=== PATIENT | female | born 1940 | race Caucasian/White ===

== ENCOUNTER 2018-09-12 00:42 | Emergency (ER) | payer MEDICARE, OTHER, SELFPAY ==
--- NOTE | 2018-09-12 00:49 | DI.RAD.S_ITS ---
PROCEDURE: XR ELBOW LT MIN 3V INDICATIONS: Ground level fall TECHNIQUE: 3 views of the elbow were acquired. COMPARISON: None. FINDINGS: Bones: No fractures or dislocations. No suspicious bony lesions. Soft tissues: No elbow joint effusion. No suspicious soft tissue calcifications. IMPRESSION: No fracture. If the patient's symptoms do not improve recommend followup radiographs in 10 days to assess for healing sclerosis/occult injury. Dictated by: Alex Estrada M.D. on 09/12/2018 at 7:44 Approved by: Alex Estrada M.D. on 09/12/2018 at 7:44
--- NOTE | 2018-09-12 00:51 | DI.RAD.S_ITS ---
PROCEDURE: XR SHOULDER LT MIN 2V INDICATIONS: Ground level fall TECHNIQUE: 2 views of the shoulder were acquired. COMPARISON: None. FINDINGS: Bones: No fractures or dislocations. No suspicious bony lesions. Visualized ribs appear intact. Status post left shoulder arthroplasty. Acromioclavicular joint degeneration. Soft tissues: No suspicious soft tissue calcifications. IMPRESSION: No fracture Dictated by: Alex Estrada M.D. on 09/12/2018 at 7:50 Approved by: Alex Estrada M.D. on 09/12/2018 at 7:53
[2018-09-12 00:56] VITALS: BP 178/73; PULSE 90; RESP 16; TEMP 36.8; O2SAT 98; BMI 30.9
--- NOTE | 2018-09-12 01:00 | ED_ITS ---
HPI - Extremity Injury (Upper) <Magali Urena DO - Last Filed: 09/12/18 18:54> General Chief Complaint: Extremity Injury, Upper Stated Complaint: Fall / L Humerous Fx Time Seen by Provider: 09/12/18 00:52 Source: patient Mode of arrival: ambulatory Limitations: no limitations History of Present Illness HPI narrative: patient is a 77-year-old female who presents with left arm injury. She says she tripped over an extension cord under rub. She landed on her left elbow she has pain in that area. She does have some bruising in the superficial laceration. No numbness or tingling. She is not on any anti- platelet or anticoagulation medication. No other injuries denies any head injury or hip injury. She is ambulatory but does require walking poles due to ft problems. Related Data Allergies Allergy/AdvReac Type Severity Reaction Status Date / Time soy Allergy Intermediate HIVES Verified 09/12/18 01:33 codeine AdvReac Mild VOMITING Verified 09/12/18 01:33 ketorolac AdvReac Mild VOMITING Verified 09/12/18 01:33 morphine AdvReac Mild N/V Verified 09/12/18 01:33 oxycodone AdvReac Mild VOMITING Verified 09/12/18 01:33 pentobarbital AdvReac Mild VOMITING Verified 09/12/18 01:33 Review of Systems <Magali Urena DO - Last Filed: 09/12/18 18:54> Review of Systems ROS Unobtainable: All systems reviewed & are unremarkable except as noted in HPI and below Constitutional Denies chills, Denies fever(s), Denies lethargy and Denies weakness Cardiovascular Denies chest pain, Denies irregular heart rhythm, Denies lightheadedness, Denies palpitations and Denies orthopnea Musculoskeletal Reports as per HPI Integumentary/Breasts Reports as per HPI and Denies bleeding lesions Neurologic Denies weakness Endocrine Denies palpitations PFS <Magali Urena DO - Last Filed: 09/12/18 18:54> Medical History GERD (gastroesophageal reflux disease) (Acute) Surgical History History of left shoulder replacement (Acute) Status post surgery (01/12/09) Social History Smoking Status: Former smoker Social History Smoking Status: Former smoker Exam <Magali Urena DO - Last Filed: 09/12/18 18:54> Initial Vital Signs Initial Vital Signs: Vital Signs Temperature 98.2 F 09/12/18 00:56 Pulse Rate 90 09/12/18 00:56 Respiratory Rate 16 09/12/18 00:56 Blood Pressure 178/73 H 09/12/18 00:56 Pulse Oximetry 98 09/12/18 00:56 GENERAL: alert pleasant elderly female in no acute distress HEENT: Head atraumatic, no contusions or abrasionsEOMI, pupils reactive, face symmetric, neck is supple CARDIOVASCULAR: Regular rate and rhythm without murmurs, rubs or gallops. RESPIRATORY: Breath sounds equal bilaterally, no wheezes rales or rhonchi. ABDOMEN: Soft, nontender. Normoactive bowel sounds all 4 quadrants. No guarding or rebound. EXTREMITIES: Normal range of motion, no clubbing or edema. Neurovascularly intact. hips and pelvis nontender - left upper extremity: No clavicle or shoulder tenderness or deformity. She does have distal humerus contusion with a 3 in 0.5 cm superficial laceration is. No tender over olecranon on able to flex and extend though it is slightly painful due to swelling. Neurovascularly intact. No wrist deformities. NEUROLOGICAL: Alert and oriented x3 moves all extremities SKIN: Warm, dry, no laceration, no petechiae, no rashes or lesions. <Manoj Rodarte DO - Last Filed: 09/12/18 18:30> Initial Vital Signs Initial Vital Signs: Vital Signs Temperature 98.2 F 09/12/18 00:56 Pulse Rate 90 09/12/18 00:56 Respiratory Rate 16 09/12/18 00:56 Blood Pressure 178/73 H 09/12/18 00:56 Pulse Oximetry 98 09/12/18 00:56 Course <Magali Urena DO - Last Filed: 09/12/18 18:54> Orders Ordered: Discontinued Medications Acetaminophen (Tylenol) 975 mg PO NOW ONE Stop: 09/12/18 01:30 Last Admin: 09/12/18 01:34 Dose: 975 mg Diphtheria/Tetanus/Acell Pertussis (Adacel) 0.5 ml IM .ONCE ONE Stop: 09/12/18 01:30 Last Admin: 09/12/18 01:34 Dose: 0.5 ml Vital Signs - 8 hr 09/12/18 01:51 09/12/18 05:15 Pulse Rate 71 79 Respiratory Rate 16 16 Blood Pressure [Right Arm] 147/54 H 171/60 H Pulse Oximetry 98 96 <Manoj Rodarte DO - Last Filed: 09/12/18 18:30> Course Narrative: PT AOx3, has family/friend picking her up at [facility]. [facility] will transport to [facility]. Orders Ordered: Discontinued Medications Acetaminophen (Tylenol) 975 mg PO NOW ONE Stop: 09/12/18 01:30 Last Admin: 09/12/18 01:34 Dose: 975 mg Diphtheria/Tetanus/Acell Pertussis (Adacel) 0.5 ml IM .ONCE ONE Stop: 09/12/18 01:30 Last Admin: 09/12/18 01:34 Dose: 0.5 ml Vital Signs - 8 hr 09/12/18 01:51 09/12/18 05:15 Pulse Rate 71 79 Respiratory Rate 16 16 Blood Pressure [Right Arm] 147/54 H 171/60 H Pulse Oximetry 98 96 MDM - Extremity Injury (Upper) <Magali Urena, DO - Last Filed: 09/12/18 18:54> Imaging Data right shoulder XR: Attestation: I personally reviewed and interpreted this imaging study as follows: My impression: Surgical repair noted no fracture right elbow x-ray: Attestation: I personally reviewed and interpreted this imaging study as follows: My impression: no fracture no posterior fat pad MDM Narrative Medical decision making narrative: patient initially waited in the ED until taxi cab her running again. Unfortunately [employer] is no longer running due to the weather conditions. We have called patient's emergency contact [place]. She also is noted in high and cannot get out. She has no on else to come and get her. As the patient is elderly cannot take the bus and walk long distances in the snow. Also not sure taxi cab on [facility] is running. patient is requiring in eating transport back to the [facility] at this time she has a contusion on her left arm and does not meet any sort of admission criteria. Fire department kindly took patient to the [facility] Discharge Plan Departure Patient Disposition: Home Clinical Impression: Contusion of arm, left Qualifiers: Encounter type: initial encounter Qualified Code(s): S40.022A - Contusion of left upper arm, initial encounter Discharge Date/Time: 09/12/18 09:20 Interventions: ED Discharge Assessment Last Done: 09/12/18 09:20 Instructions: DI for Contusion Activity Restrictions/Additional Instructions: *You have been diagnosed with left arm contusion *What to do: keep arm elevated above heart if possible, ice 20 min at a time, if still having pain in 7 10 days may require repeat imaging, With her primary care provider, walk-in clinic or ER *Continue to take medications as directed - Tylenol 650 mg every 4-6 hours if needed for pain *Follow up with your primary care provider in 2-3 days *Return to ER if you should have increasing pain, numbness, tingling, redness, pus any new, worsening or concerning symptoms Referrals: Edil Ballesteros MD [Primary Care Provider] -
[2018-09-12] MEDS: ACETAMINOPHEN 325 MG TABLET 975 MG PO (01:34)
[2018-09-12] MEDS: TET,DIPH,PERTUSS(ACELL),VAC/PF 0.5 ML SYRINGE IM (01:34)
[2018-09-12 01:51] VITALS: BP 147/54; PULSE 71; RESP 16; O2SAT 98
--- NOTE | 2018-09-12 05:00 | PC.NURSE ---
patient came over from [facility] via POV. patient lives alone. We attempted to call [facility] and patients friend to help get her home. [employer] is not running today and patients friend states that she cannot leave her house due to the snow. public transit bus is not a safe option.
[2018-09-12 05:15] VITALS: BP 171/60; PULSE 79; RESP 16; O2SAT 96
== END 2018-09-12 09:20 | disposition home or self-care (01) ==
PROVIDERS: Emergency Provider Emergency Medicine; PCP Family Medicine
DX: S40.022A Contusion of left upper arm, initial encounter (principal); W01.0XXA Fall on same level from slipping, tripping and stumbling without subsequent striking against object, initial encounter
CPT/HCPCS: 73030; 73080; 90471; 99283; 90715

== ENCOUNTER → 2018-12-27 11:39 | Outpatient (CLI) | payer MEDICARE, OTHER, SELFPAY ==
--- NOTE | 2018-12-27 | DI.MRI.S_ITS ---
PROCEDURE: MR LUMBAR SPINE WO CON INDICATIONS: Spinal stenosis, lumbar region with neurogenic cla TECHNIQUE: Noncontrast sagittal T1 spin echo and T2 fast echo, sagittal STIR, axial T1 and T2 fast spin echo through the lumbar spine. In cases with scoliosis, additional coronal T2 fast spin echo may be performed. COMPARISON: [facility], MR, L-SPINE WITHOUT CONTRAST, 12/17/2013, 9:19. [facility], CR, L-SPINE MINIMUM 4 VIEWS, 03/28/2007, 12:11. [facility], MR, L-SPINE WITHOUT CONTRAST, 01/24/2017, 15:00. FINDINGS: Image quality: Excellent. Alignment and Curvature: S-shaped scoliotic curvature is seen. Mild retrolisthesis is seen at L2-L3. There is minimal anterolisthesis at L3-L4. Mild anterolisthesis is seen of L4-L5. Minimal retrolisthesis is seen at L5-S1. Bone Marrow: Marrow is of normal overall signal. No acute vertebral body compression fractures. Spinal Cord: Conus medullaris terminates at the L1 level. Visualized cord demonstrates normal signal and size. Paraspinous Soft Tissues: No paravertebral masses. T12-L1: Moderate loss of disc height is seen. Loss of disc signal is seen. Bridging endplate osteophytes are seen anteriorly. Mild to moderate disc bulge is seen. No significant neural foraminal or central canal narrowing can be seen. L1-L2: Moderate to severe loss of disc height and disc signal can be seen on the left side. Moderate generalized disc bulge is seen. Mild facet joint hypertrophy is seen. There is moderate left-sided and mild right-sided neural foraminal narrowing seen. Moderate central canal narrowing is seen. When comparison is made with the prior examination, these findings are similar. L2-L3: Moderate loss of disc height is seen. Loss of disc signal is seen. Moderate disc bulge is seen, which is eccentric to the left. There is moderate bilateral neural foraminal narrowing seen. At least moderate central canal narrowing is seen. When comparison is made with the prior examination, these findings are similar. L3-L4: Moderate loss of disc height is seen. Loss of disc signal is seen. Moderate disc bulge is seen, which is eccentric to the left. Prominent facet hypertrophy is seen. There is moderate left-sided and at least moderate right-sided neural foraminal narrowing seen. Mild central canal narrowing is seen. L4-L5: There is moderate to severe loss of disc height seen on the right side. Moderate disc bulge is seen, which is eccentric to the right. Moderate to prominent facet hypertrophy is seen. Moderate to severe bilateral neural foraminal narrowing is seen, right worse than left. There is a degree of compression seen upon the exiting nerve roots. Mild to moderate central canal narrowing is seen. When comparison is made with the prior examination, these findings are similar. L5-S1: Mild loss of disc height is seen. Loss of disc signal is seen. Mild to moderate disc bulge is seen. Prominent facet hypertrophy is seen. Moderate bilateral neural foraminal narrowing is seen. [id number]-[id number] central canal narrowing is seen. When comparison is made with the prior examination, these findings are similar. IMPRESSION: S-shaped scoliosis and multiple levels of lumbar spine degenerative change are seen. When compared to the images from 2017, the degenerative changes are similar. Dictated by: Carlos Abreu M.D. on 12/27/2018 at 13:25 Approved by: Carlos Abreu M.D. on 12/27/2018 at 13:31
== END ==
PROVIDERS: PCP Family Medicine; Visit Provider Physical Medicine & Rehabilitation Pain Medicine
DX: M48.062 Spinal stenosis, lumbar region with neurogenic claudication (principal); M47.816 Spondylosis without myelopathy or radiculopathy, lumbar region; M47.817 Spondylosis without myelopathy or radiculopathy, lumbosacral region; M41.9 Scoliosis, unspecified
CPT/HCPCS: 72148

== ENCOUNTER → 2020-04-16 11:15 | Outpatient (CLI) | payer MEDICARE, OTHER, SELFPAY ==
--- NOTE | 2020-04-16 12:19 | DIET.PN ---
Nutrition Initial Assessment:? ASSESS:???Ms. Gonzalez is a 79 yof referred for pre-diabetes. She reports strong family hx of diabetes (mother, siblings). Recently lost 10 lbs with nutrisystem but gained it back once she discontinued. Has tried vegetarian. Interested in trying Keto. Severe neuropathy in both feet making activity challenging. She lives on [place] alone as her and sister recently passed. ? LABS: Per pt report:? A1c: 5.8 ? MEDS:?? n/a ? DIET: Per 24-hour recall:? B: oatmeal w/ berries; coffee w/ coconut cream L: Nutrisystem meals; cheese and crackers w/ ? avocado Sn: raw veggies w/ ranch D: Salad, sweet potato, small protein; Caesar wrap Sn: small bowl of nuts ? Weight: 180 lb Ht:? 62 in BMI: 32.9 ? Exercise:? none at this time. NUTRITION DX 1. Altered Nutrition related labs related to impaired glucose metabolism, lack of previous exposure to accurate nutrition information as evidenced by pt report, dx of pre-diabetes, previous diet high in refined carbohydrates, lack of physical activity.? INTERVENTION(s): 1. Discussed pathophysiology of diabetes/hyperglycemia and impact of nutrition/diet on blood sugar control.? 2. Discussed the effect of carbohydrates/protein/fat on blood sugar control.? Stressed importance of consistent carbohydrate intake at each meal and provided instructions for recommended servings/portions of carbohydrates/protein per meal. Provided pt with educational material. 3. Reviewed carbohydrate counting and measuring carbohydrate content via serving sizes and reading nutrition labels.? Provided handouts.?? 4. Discussed the difference between simple versus complex carbohydrates and the effect of fiber on blood sugar control.? Discussed various methods to increase fiber content in diet. 5. Stressed importance of meal timing and not going >4-5 hours between meals. Encouraged adding protein to snacks to support glucose control and prevent hunger. Discussed various snack options. 6. Discussed importance of food preparation to encourage healthy eating, portion control, and prevent hunger/over snacking. 7. Discussed healthy weight loss goals of 1-2lbs per week through diet and exercise.? Pt agreeable to keeping a food record when bg is above 140. MONITOR/EVALUATE: Pt will call for f/u when she has her next provider appt.
== END ==
PROVIDERS: PCP Family Medicine; Referring Provider Family Medicine; Visit Provider Family Medicine
DX: R73.03 Prediabetes (principal); G62.9 Polyneuropathy, unspecified; E66.9 Obesity, unspecified; Z68.32 Body mass index [BMI] 32.0-32.9, adult; Z71.3 Dietary counseling and surveillance
CPT/HCPCS: 97802

== ENCOUNTER → 2021-01-19 10:00 | Outpatient (CLI) | payer MEDICARE, OTHER, SELFPAY ==
[2021-01-19 19:50] LABS: Add Manual Diff / Slide Review NO; Basophils Absolute Auto 100 /uL (0-100); Basophils Percent Auto 1.1 % (0-2); Eosinophils Absolute Auto 200 /uL (0-450); Eosinophils Percent Auto 2.2 % (2-4); Hematocrit 38.5 % (36-46); Hemoglobin 12.8 g/dL (12.0-16.0); Lymphocytes Absolute Auto 1500 /uL (1100-4500); Lymphocytes Percent Auto 15.7 % (25-40); Mean Corpuscular HGB Conc 33.3 % (30-36); Mean Corpuscular Hemoglobin 30.9 PG (26-34); Mean Corpuscular Volume 92.9 fL (80-100); Monocytes Absolute Auto 700 /uL (0-900); Monocytes Percent Auto 7.2 % (3-14); Neutrophils Absolute Auto 6900 /uL (1500-7000); Neutrophils Percent Auto 73.8 % (50-75); Platelet Count 180 X10^3/uL (150-400); Red Blood Cell Count 4.15 X10^6/uL (4.0-5.2); Red Cell Distribution Width 14.9 % (11.6-14.8); White Blood Cell Count 9.4 X10^3/uL (4.5-11.0)
[2021-01-19 20:03] LABS: Alanine Aminotransferase 21 IU/L (<35); Albumin 4.1 g/dL (3.5-5.0); Albumin Globulin Ratio 1.4 (1.0-2.8); Alkaline Phosphatase 88 U/L (38-126); Aspartate Aminotransferase 34 IU/L (14-36); BUN Creatinine Ratio 25.3 (6-22); Bilirubin Total 0.5 mg/dL (0.2-1.3); Blood Urea Nitrogen 23 mg/dL (7-17); Calcium 10.1 mg/dL (8.4-10.2); Carbon Dioxide 28 mmol/L (22-32); Chloride 99 mmol/L (98-107); Cholesterol 301 mg/dL (140-199); Estimated Glomerular Filt Rate 59.8 mL/min (>60); Globulin 2.9 g/dL (1.7-4.1); Glucose 105 mg/dL (80-110); HDL Cholesterol 101 mg/dL (40-60); HEMOLYSIS 16 (0-50); LDL Cholesterol Calculated 176 mg/dL (<100); Potassium 4.4 mmol/L (3.4-5.1); Sodium 137 mmol/L (137-145); Triglycerides 118 mg/dL (35-150)
[2021-01-19 20:05] LABS: Hemoglobin A1C% w Est Avg Glu 5.6 % (4.0-6.0)
[2021-01-19 20:28] LABS: Thyroid Stimulating Hormone 86.3 uIU/mL (0.47-4.68)
== END ==
PROVIDERS: PCP Physician Assistant; Visit Provider Physician Assistant
DX: E78.00 Pure hypercholesterolemia, unspecified (principal); R73.9 Hyperglycemia, unspecified; K21.9 Gastro-esophageal reflux disease without esophagitis; E03.9 Hypothyroidism, unspecified; G62.9 Polyneuropathy, unspecified
CPT/HCPCS: 80053; 80061; 83036; 84443; 85025

== ENCOUNTER → 2021-05-13 13:24 | Outpatient (CLI) | payer MEDICARE, OTHER, SELFPAY ==
[2021-05-13 19:06] LABS: Alanine Aminotransferase 17 IU/L (<35); Albumin Globulin Ratio 1.5 (1.0-2.8); Alkaline Phosphatase 82 U/L (38-126); Aspartate Aminotransferase 32 IU/L (14-36); BUN Creatinine Ratio 23.8 (6-22); Bilirubin Total 0.4 mg/dL (0.2-1.3); Blood Urea Nitrogen 15 mg/dL (7-17); Calcium 9.5 mg/dL (8.4-10.2); Carbon Dioxide 29 mmol/L (22-32); Chloride 103 mmol/L (98-107); Estimated Glomerular Filt Rate > 60.0 mL/min (>60); Globulin 2.7 g/dL (1.7-4.1); Glucose 142 mg/dL (80-110); HEMOLYSIS 33 (0-50); Potassium 4.2 mmol/L (3.4-5.1); Sodium 140 mmol/L (137-145); Total Protein 6.7 g/dL (6.3-8.2)
[2021-05-13 19:33] LABS: TSH w/ Reflex to FT4 1.38 uIU/mL (0.47-4.68)
== END ==
PROVIDERS: PCP Physician Assistant; Referring Provider Physician Assistant; Visit Provider Physician Assistant
DX: E78.00 Pure hypercholesterolemia, unspecified (principal); E03.9 Hypothyroidism, unspecified; R25.1 Tremor, unspecified
CPT/HCPCS: 80053; 84443

== ENCOUNTER → 2021-05-18 11:50 | Outpatient (CLI) | payer MEDICARE, OTHER, SELFPAY ==
[2021-05-18 19:25] LABS: Hemoglobin A1C% w Est Avg Glu 5.4 % (4.0-6.0)
== END ==
PROVIDERS: PCP Physician Assistant; Referring Provider Physician Assistant; Visit Provider Physician Assistant
DX: R73.9 Hyperglycemia, unspecified (principal)
CPT/HCPCS: 83036

== ENCOUNTER → 2021-08-06 11:01 | Outpatient (CLI) | payer MEDICARE, SELFPAY ==
[2021-08-06 19:25] LABS: Alanine Aminotransferase 16 IU/L (<35); Albumin Globulin Ratio 1.4 (1.0-2.8); Alkaline Phosphatase 69 U/L (38-126); Aspartate Aminotransferase 26 IU/L (14-36); BUN Creatinine Ratio 19.7 (6-22); Bilirubin Total 0.5 mg/dL (0.2-1.3); Blood Urea Nitrogen 15 mg/dL (7-17); Calcium 9.6 mg/dL (8.4-10.2); Carbon Dioxide 32 mmol/L (22-32); Chloride 102 mmol/L (98-107); Estimated Glomerular Filt Rate > 60.0 mL/min (>60); Globulin 2.8 g/dL (1.7-4.1); Glucose 108 mg/dL (80-110); HEMOLYSIS < 15 (0-50); Potassium 3.8 mmol/L (3.4-5.1); Sodium 138 mmol/L (137-145); Total Protein 6.8 g/dL (6.3-8.2)
[2021-08-06 19:30] LABS: Hemoglobin A1C% w Est Avg Glu 5.6 % (4.0-6.0)
[2021-08-06 19:43] LABS: Free T4, Direct Thyroxine 0.91 ng/dL (0.78-2.19)
[2021-08-06 19:57] LABS: Thyroid Stimulating Hormone 3.41 uIU/mL (0.47-4.68)
[2021-08-06 20:15] LABS: Vitamin B12 1000 pg/mL (239-931)
== END ==
PROVIDERS: PCP Physician Assistant; Visit Provider Family Medicine
DX: E78.00 Pure hypercholesterolemia, unspecified (principal); R73.9 Hyperglycemia, unspecified; E03.9 Hypothyroidism, unspecified; E53.8 Deficiency of other specified B group vitamins
CPT/HCPCS: 80053; 82607; 83036; 84439; 84443

== ENCOUNTER → 2021-10-27 08:55 | Outpatient (CLI) | payer MEDICARE, SELFPAY ==
[2021-10-27 19:00] LABS: Add Manual Diff / Slide Review NO; Basophils Absolute Auto 0 /uL (0-100); Basophils Percent Auto 0.9 % (0-2); Eosinophils Absolute Auto 100 /uL (0-450); Eosinophils Percent Auto 1.9 % (2-4); Hematocrit 37.9 % (36-46); Hemoglobin 12.8 g/dL (12.0-16.0); Lymphocytes Absolute Auto 800 /uL (1100-4500); Lymphocytes Percent Auto 13.9 % (25-40); Mean Corpuscular HGB Conc 33.8 % (30-36); Mean Corpuscular Hemoglobin 30.7 PG (26-34); Mean Corpuscular Volume 90.8 fL (80-100); Monocytes Absolute Auto 400 /uL (0-900); Monocytes Percent Auto 7.9 % (3-14); Neutrophils Absolute Auto 4100 /uL (1500-7000); Neutrophils Percent Auto 75.4 % (50-75); Platelet Count 154 X10^3/uL (150-400); Red Blood Cell Count 4.18 X10^6/uL (4.0-5.2); Red Cell Distribution Width 14.9 % (11.6-14.8); White Blood Cell Count 5.5 X10^3/uL (4.5-11.0)
[2021-10-27 19:03] LABS: Alanine Aminotransferase 15 IU/L (<35); Albumin 4.1 g/dL (3.5-5.0); Albumin Globulin Ratio 1.4 (1.0-2.8); Alkaline Phosphatase 66 U/L (38-126); Aspartate Aminotransferase 29 IU/L (14-36); BUN Creatinine Ratio 19.2 (6-22); Bilirubin Total 0.6 mg/dL (0.2-1.3); Blood Urea Nitrogen 15 mg/dL (7-17); Calcium 9.5 mg/dL (8.4-10.2); Carbon Dioxide 30 mmol/L (22-32); Chloride 101 mmol/L (98-107); Estimated Glomerular Filt Rate > 60.0 mL/min (>60); Globulin 2.9 g/dL (1.7-4.1); Glucose 127 mg/dL (80-110); HEMOLYSIS < 15 (0-50); Potassium 3.7 mmol/L (3.4-5.1); Sodium 139 mmol/L (137-145)
[2021-10-27 19:49] LABS: Vitamin B12 > 1000 pg/mL (239-931)
[2021-10-27 20:24] LABS: Free T4, Direct Thyroxine 0.38 ng/dL (0.78-2.19)
== END ==
PROVIDERS: PCP Physician Assistant; Visit Provider Physician Assistant
DX: G62.9 Polyneuropathy, unspecified (principal); E78.00 Pure hypercholesterolemia, unspecified; E03.9 Hypothyroidism, unspecified; E53.8 Deficiency of other specified B group vitamins; R73.9 Hyperglycemia, unspecified
CPT/HCPCS: 80053; 82607; 84439; 84443; 85025

== ENCOUNTER → 2022-02-15 14:03 | Outpatient (CLI) | payer MEDICARE, SELFPAY ==
[2022-02-15 20:43] LABS: BUN Creatinine Ratio 26.6 (6-22); Blood Urea Nitrogen 25 mg/dL (7-17); Calcium 9.2 mg/dL (8.4-10.2); Carbon Dioxide 35 mmol/L (22-32); Chloride 95 mmol/L (98-107); Estimated Glomerular Filt Rate > 60 mL/min (>60); Glucose 140 mg/dL (80-110); HEMOLYSIS < 15 (0-50); Sodium 136 mmol/L (137-145)
== END ==
PROVIDERS: PCP Physician Assistant; Visit Provider Internal Medicine Cardiovascular Disease
DX: I10 Essential (primary) hypertension (principal); I35.0 Nonrheumatic aortic (valve) stenosis
CPT/HCPCS: 80048

== ENCOUNTER → 2022-03-14 11:37 | Outpatient (CLI) | payer MEDICARE, SELFPAY ==
[2022-03-14 21:15] LABS: Alanine Aminotransferase 14 IU/L (<35); Albumin 3.8 g/dL (3.5-5.0); Albumin Globulin Ratio 1.5 (1.0-2.8); Alkaline Phosphatase 80 U/L (38-126); Aspartate Aminotransferase 22 IU/L (14-36); Bilirubin Total 0.5 mg/dL (0.2-1.3); Blood Urea Nitrogen 15 mg/dL (7-17); Calcium 9.1 mg/dL (8.4-10.2); Carbon Dioxide 30 mmol/L (22-32); Chloride 98 mmol/L (98-107); Estimated Glomerular Filt Rate > 60 mL/min (>60); Globulin 2.6 g/dL (1.7-4.1); Glucose 108 mg/dL (80-110); HEMOLYSIS 19 (0-50); Potassium 3.5 mmol/L (3.4-5.1); Sodium 135 mmol/L (137-145); Total Protein 6.4 g/dL (6.3-8.2)
[2022-03-14 21:42] LABS: TSH w/ Reflex to FT4 0.05 uIU/mL (0.47-4.68)
[2022-03-14 22:34] LABS: Free T4, Direct Thyroxine 2.05 ng/dL (0.78-2.19)
[2022-03-15 01:19] LABS: Hemoglobin A1C% w Est Avg Glu 5.9 % (4.0-6.0)
== END ==
PROVIDERS: PCP Physician Assistant; Visit Provider Family Medicine
DX: E03.9 Hypothyroidism, unspecified (principal); I10 Essential (primary) hypertension; R73.9 Hyperglycemia, unspecified; Z12.11 Encounter for screening for malignant neoplasm of colon
CPT/HCPCS: 80053; 83036; 84439; 84443

== ENCOUNTER → 2022-08-10 11:21 | Outpatient (CLI) | payer MEDICARE, SELFPAY ==
[2022-08-10 19:42] LABS: Cholesterol 273 mg/dL (140-199); HDL Cholesterol 64 mg/dL (40-60); LDL Cholesterol Calculated 178 mg/dL (<100); Triglycerides 153 mg/dL (35-150)
[2022-08-10 20:10] LABS: TSH w/ Reflex to FT4 0.12 uIU/mL (0.47-4.68)
[2022-08-10 20:27] LABS: Vitamin B12 > 1000 pg/mL (239-931)
[2022-08-10 20:37] LABS: Free T4, Direct Thyroxine 1.36 ng/dL (0.78-2.19)
== END ==
PROVIDERS: Family Medicine; PCP Physician Assistant; Visit Provider Physician Assistant
DX: E53.8 Deficiency of other specified B group vitamins (principal); E03.9 Hypothyroidism, unspecified; I10 Essential (primary) hypertension; R73.9 Hyperglycemia, unspecified
CPT/HCPCS: 80061; 82607; 84439; 84443

== ENCOUNTER → 2022-10-19 10:55 | Outpatient (CLI) | payer MEDICARE, SELFPAY ==
[2022-10-19 19:14] LABS: Alanine Aminotransferase 11 IU/L (<35); Albumin 3.6 g/dL (3.5-5.0); Albumin Globulin Ratio 1.3 (1.0-2.8); Alkaline Phosphatase 86 U/L (38-126); Aspartate Aminotransferase 26 IU/L (14-36); BUN Creatinine Ratio 22.9 (6-22); Bilirubin Total 0.8 mg/dL (0.2-1.3); Blood Urea Nitrogen 19 mg/dL (7-17); Calcium 9.2 mg/dL (8.4-10.2); Carbon Dioxide 31 mmol/L (22-32); Chloride 101 mmol/L (98-107); Cholesterol 149 mg/dL (140-199); Estimated Glomerular Filt Rate > 60 mL/min (>60); Globulin 2.8 g/dL (1.7-4.1); Glucose 120 mg/dL (80-110); HDL Cholesterol 66 mg/dL (40-60); HEMOLYSIS < 15 (0-50); LDL Cholesterol Calculated 59 mg/dL (<100); Potassium 3.8 mmol/L (3.4-5.1); Sodium 138 mmol/L (137-145); Total Protein 6.4 g/dL (6.3-8.2); Triglycerides 118 mg/dL (35-150)
[2022-10-19 19:16] LABS: Hemoglobin A1C% w Est Avg Glu 5.6 % (4.0-6.0)
[2022-10-19 19:29] LABS: Vitamin D 25 Hydroxy (D3) 18.8 ng/mL (30.0-100.0)
[2022-10-19 19:41] LABS: TSH w/ Reflex to FT4 0.39 uIU/mL (0.47-4.68)
[2022-10-19 20:44] LABS: Free T4, Direct Thyroxine 1.63 ng/dL (0.78-2.19)
[2022-10-19 23:49] LABS: Vitamin B12 858 pg/mL (239-931)
== END ==
PROVIDERS: Family Medicine; PCP Physician Assistant; Visit Provider Physician Assistant
DX: E03.9 Hypothyroidism, unspecified (principal); E78.00 Pure hypercholesterolemia, unspecified; R73.9 Hyperglycemia, unspecified; E53.8 Deficiency of other specified B group vitamins
CPT/HCPCS: 80053; 80061; 82306; 82607; 83036; 84439; 84443

== ENCOUNTER → 2023-01-30 13:22 | Outpatient (CLI) | payer MEDICARE, SELFPAY ==
[2023-01-30 20:00] LABS: Add Manual Diff / Slide Review NO; Basophils Absolute Auto 0 /uL (0-100); Basophils Percent Auto 0.6 % (0-2); Eosinophils Absolute Auto 100 /uL (0-450); Eosinophils Percent Auto 1.9 % (2-4); Hematocrit 34.9 % (36-46); Hemoglobin 11.9 g/dL (12.0-16.0); Lymphocytes Absolute Auto 1000 /uL (1100-4500); Lymphocytes Percent Auto 17.4 % (25-40); Mean Corpuscular HGB Conc 34.2 % (30-36); Mean Corpuscular Volume 90.6 fL (80-100); Monocytes Absolute Auto 400 /uL (0-900); Monocytes Percent Auto 7.6 % (3-14); Neutrophils Absolute Auto 4000 /uL (1500-7000); Neutrophils Percent Auto 72.5 % (50-75); Platelet Count 149 X10^3/uL (150-400); Red Blood Cell Count 3.85 X10^6/uL (4.0-5.2); Red Cell Distribution Width 13.7 % (11.6-14.8); White Blood Cell Count 5.5 X10^3/uL (4.5-11.0)
[2023-01-30 20:15] LABS: Alanine Aminotransferase 13 IU/L (<35); Albumin 3.8 g/dL (3.5-5.0); Albumin Globulin Ratio 1.5 (1.0-2.8); Alkaline Phosphatase 69 U/L (38-126); Aspartate Aminotransferase 26 IU/L (14-36); BUN Creatinine Ratio 27.1 (6-22); Bilirubin Total 0.4 mg/dL (0.2-1.3); Blood Urea Nitrogen 23 mg/dL (7-17); Calcium 9.5 mg/dL (8.4-10.2); Carbon Dioxide 30 mmol/L (22-32); Chloride 100 mmol/L (98-107); Estimated Glomerular Filt Rate > 60 mL/min (>60); Globulin 2.6 g/dL (1.7-4.1); Glucose 137 mg/dL (80-110); HEMOLYSIS < 15 (0-50); Potassium 3.8 mmol/L (3.4-5.1); Sodium 138 mmol/L (137-145); Total Protein 6.4 g/dL (6.3-8.2)
[2023-01-30 20:26] LABS: Vitamin D 25 Hydroxy (D3) 29.2 ng/mL (30.0-100.0)
[2023-01-30 20:41] LABS: TSH w/ Reflex to FT4 0.02 uIU/mL (0.47-4.68)
[2023-01-30 20:51] LABS: Ferritin 18 ng/mL (11-264)
[2023-01-30 21:06] LABS: Vitamin B12 991 pg/mL (239-931)
[2023-01-30 23:03] LABS: Free T4, Direct Thyroxine 1.85 ng/dL (0.78-2.19)
== END ==
PROVIDERS: PCP Physician Assistant; Visit Provider Physician Assistant
DX: E55.9 Vitamin D deficiency, unspecified (principal); Z79.899 Other long term (current) drug therapy; Z87.11 Personal history of peptic ulcer disease; G62.9 Polyneuropathy, unspecified; I10 Essential (primary) hypertension; R60.9 Edema, unspecified; E03.9 Hypothyroidism, unspecified
CPT/HCPCS: 80053; 82306; 82607; 82728; 84439; 84443; 85025

== ENCOUNTER → 2023-02-21 15:55 | Outpatient (CLI) | payer MEDICARE, SELFPAY ==
[2023-02-21 20:26] LABS: Appearance Urine UA CLEAR; Bilirubin Urine UA NEGATIVE (NEGATIVE); Color Urine UA YELLOW; Glucose Urine UA NEGATIVE (Negative); Ketones Urine UA NEGATIVE (NEGATIVE); Leukocyte Esterase Urine UA 1+ (NEGATIVE); Nitrite Urine UA NEGATIVE (Negative); Occult Blood Urine UA NEGATIVE (Negative); Protein Urine UA NEGATIVE (Negative); Specific Gravity Urine UA <=1.005 (1.000-1.035); Urobilinogen Urine UA 0.2 E.U./dL (0.2)
[2023-02-21 20:32] LABS: pH Urine UA 6.5 (4.5-8.0)
[2023-02-21 20:42] LABS: Bacteria Urine Occasional (0-1); Culture Indicated Urine Specimen Cultured; RBC Urine None Seen (0-5/HPF); Squamous Epithelial Cell Urine 1-5 /HPF (0-5/HPF); WBC Urine 10-30/HPF (0-5/HPF)
[2023-02-23 10:36] LABS: Fecal Immunochemical Test Negative (Negative)
== END ==
PROVIDERS: PCP Physician Assistant; Visit Provider Physician Assistant
DX: D64.9 Anemia, unspecified (principal)
CPT/HCPCS: 81003; 81015; 82274; 87086

== ENCOUNTER → 2023-07-20 11:49 | Outpatient (CLI) | payer MEDICARE, SELFPAY ==
[2023-07-20 20:46] LABS: Add Manual Diff / Slide Review NO; Basophils Absolute Auto 0 /uL (0-100); Basophils Percent Auto 0.6 % (0-2); Eosinophils Absolute Auto 100 /uL (0-450); Eosinophils Percent Auto 1.9 % (2-4); Hematocrit 36.5 % (36-46); Hemoglobin 12.4 g/dL (12.0-16.0); Lymphocytes Absolute Auto 1200 /uL (1100-4500); Lymphocytes Percent Auto 18.9 % (25-40); Mean Corpuscular HGB Conc 34.1 % (30-36); Mean Corpuscular Volume 91.1 fL (80-100); Monocytes Absolute Auto 500 /uL (0-900); Monocytes Percent Auto 7.6 % (3-14); Neutrophils Absolute Auto 4400 /uL (1500-7000); Platelet Count 170 X10^3/uL (150-400); Red Cell Distribution Width 13.7 % (11.6-14.8); White Blood Cell Count 6.3 X10^3/uL (4.5-11.0)
[2023-07-20 21:01] LABS: Free T3, Triiodothyronine Free 3.52 pg/mL (2.77-5.27)
[2023-07-20 21:04] LABS: Hemoglobin A1C% w Est Avg Glu 5.5 % (4.0-6.0)
[2023-07-20 21:15] LABS: TSH w/ Reflex to FT4 < 0.02 uIU/mL (0.47-4.68)
[2023-07-20 21:31] LABS: Vitamin B12 > 1000 pg/mL (239-931)
[2023-07-20 21:54] LABS: Free T4, Direct Thyroxine 2.07 ng/dL (0.78-2.19)
== END ==
PROVIDERS: PCP Physician Assistant; Visit Provider Physician Assistant
DX: D64.9 Anemia, unspecified (principal); E03.9 Hypothyroidism, unspecified; R73.9 Hyperglycemia, unspecified; G62.9 Polyneuropathy, unspecified
CPT/HCPCS: 82607; 83036; 84439; 84443; 84481; 85025

== ENCOUNTER → 2023-08-28 10:32 | Outpatient (CLI) | payer MEDICARE, SELFPAY ==
--- NOTE | 2023-08-28 10:35 | DI.RAD.S_ITS ---
PROCEDURE: XR LUMBAR SPINE MIN 4V INDICATIONS: BACK PAIN TECHNIQUE: 5 views of the lumbar spine were acquired, including bilateral oblique views. COMPARISON: [facility] ([place]), , XR LUMBAR SPINE 2-3V, 12/10/2020, 10:26. FINDINGS: Bones: 5 nonrib-bearing vertebrae are present. There is S-shaped scoliosis of thoracolumbar spine slightly worsened compared to 2020 study. Loss of disc height, degenerative endplate changes and bilateral facet arthrosis throughout lumbar spine is seen. No vertebral body compression fractures. No suspicious bony lesions. Soft tissues: Overlying bowel gas pattern is normal. No suspicious soft tissue calcifications. Oblique images: No pars defects. Bilateral bony foraminal stenosis at L4-5 and L5-S1 level is seen. IMPRESSION: No acute lumbar spine compression fracture or spondylolisthesis. Degenerative disc disease throughout lumbar spine. Moderate S shaped scoliosis of thoracolumbar spine slightly worsened compared to 2020 study. No gross pars defects. Bilateral bony foraminal stenosis at L4-5 and L5-S1 levels. Dictated by: Rishabh Flaherty M.D. on 08/28/2023 at 14:00 Approved by: Rishabh Flaherty M.D. on 08/28/2023 at 14:01
== END ==
PROVIDERS: PCP Family Medicine; Referring Provider Physical Medicine & Rehabilitation; Visit Provider Physical Medicine & Rehabilitation
DX: M48.062 Spinal stenosis, lumbar region with neurogenic claudication (principal); M48.07 Spinal stenosis, lumbosacral region; M51.36 Other intervertebral disc degeneration, lumbar region; M41.9 Scoliosis, unspecified; M16.0 Bilateral primary osteoarthritis of hip; G14 Postpolio syndrome; G62.9 Polyneuropathy, unspecified; Z87.11 Personal history of peptic ulcer disease
CPT/HCPCS: 72110; 99215

== ENCOUNTER → 2023-10-04 10:18 | Outpatient (CLI) | payer MEDICARE, SELFPAY ==
[2023-10-04 19:38] LABS: HEMOLYSIS < 15 (0-50)
[2023-10-04 20:22] LABS: TSH w/ Reflex to FT4 0.48 uIU/mL (0.47-4.68)
[2023-10-04 20:40] LABS: Vitamin B12 989 pg/mL (239-931)
== END ==
PROVIDERS: Physician Assistant; PCP Family Medicine; Visit Provider Family Medicine
DX: I10 Essential (primary) hypertension (principal); E03.9 Hypothyroidism, unspecified; Z79.899 Other long term (current) drug therapy
CPT/HCPCS: 82607; 84132; 84443

== ENCOUNTER 2023-10-17 12:30 | Outpatient (CLI) | payer MEDICARE, SELFPAY ==
[2023-10-17] VITALS (8 sets, daily range): BP systolic 132–177; BP diastolic 60–80; PULSE 80–85; RESP 14–22; TEMP 36.9; O2SAT 96–100
--- NOTE | 2023-10-17 14:23 | DI.RAD.S_ITS ---
PROCEDURE: PAIN L INTERLAMINAR/CAUDAL INJ INDICATIONS: spinal stenosis COMPARISON: None. FINDINGS: Fluoroscopic spot filming was performed to verify placement of spinal needles at the right L4-5 level(s), as labeled on the films. Appropriate location(s) of the needle tip(s) was confirmed by injection of iodinated contrast. IMPRESSION: Fluoroscopic support for L4-5 translaminar epidural steroid injection. Please see separate procedure note for further details. Dictated by: Ifeanyi Holloway M.D. on 10/17/2023 at 16:07 Approved by: Ifeanyi Holloway M.D. on 10/17/2023 at 16:08
[2023-10-17] MEDS: MIDAZOLAM 2 MG/2 ML VIAL IV (14:28)
[2023-10-17] MEDS: BUPIVACAINE 0.25% (PF) VIAL 2 ML INJ (14:32)
[2023-10-17] MEDS: iopamidoL 15 ML VIAL 3 ML INJ (14:32)
[2023-10-17] MEDS: DEXAMETHASONE 10 MG/ML VIAL INJ (14:33)
[2023-10-17] MEDS: BETAMETHASONE 30 MG/5 ML MDV 6 MG INJ (14:33)
--- NOTE | 2023-10-17 14:47 | P.PCN_ITS ---
Date/Time/Diagnoses Date of procedure: 10/17/23 Time of procedure: 14:47 Pre-procedure diagnosis: 1. HNP WITH RADICULAR FEATURES, 2. MULTILEVEL CENTRAL STENOSIS, Post-procedure diagnosis: same Procedure Notes Procedure: 1. FLUOROSCOPICALLY GUIDED CONTRAST CONTROLLED INTERLAMINAR EPIDURAL STEROID INJECTION -L4/5 Indications: Scot is referred by Dr. Mtz for treatment of Bilateral Foraminal Stenosis R>L LE symptoms. Physician: David Bazzi Total Fluoroscopy time (seconds): 8 Total sedation minutes: 14 Complications: none Procedure in detail & Post-procedure care: FINDINGS Multilevel Central Spinal Stenosis with Nerve Root Compression DESCRIPTION OF PROCEDURE Fluoroscopically guided, contrast-controlled L4/5 translaminar epidural steroid injection. Following review of allergy and review of potential side effects and complications, including, but not necessarily limited to, infection, allergic reaction, local tissue breakdown, temporary as well as permanent nerve injury, paralysis, stroke and possible , the patient indicated that the patient understood and agreed to proceed. An informed consent document was signed by the patient, witnessed by a nurse, and placed in the patient's chart. Additionally, other treatment options including modalities, medications, and physical therapy were reviewed with the patient. After review of previous anaesthesic history and IV conscious sedation the patient was deemed safe to proceed with today?s procedure with IV conscious sedation as ASA class II designation. Safety time-out was performed to confirm patient ID, procedure to be performed and site of procedure. IV sedation was accomplished with a combination of 2mg of Versed was administered by the RN after DO order, titrated to patient comfort during the course of the procedure while the patient remained responsive to all verbal commands In the prone position, following sterile prep and drape of the lumbar region, the L4/5 translaminar space was identified fluoroscopically. The skin was anesthetized via a 25-gauge, 1.5inch needle with 1% lidocaine solution. At this point, a 22-gauge short bevel spinal needle was atraumatically introduced and ad vanced under fluoroscopic guidance into the region of the L4/5 translaminar space. Depth was confirmed on lateral view. Radiological data, including multiple fluoroscopic views of the lumbar spine, reveal a spinal needle at the L4/5 translaminar space. Lateral views then show placement of the needle in the epidural space. Subsequent views show contrast material flowing superiorly and inferiorly in the epidural space. No vascular or intrathecal uptake is observed. At this point, using loss of resistance technique with saline and air, the epidural space was entered. This was confirmed following negative aspiration with injection of approximately 1.5cc of Isovue 200, showing excellent epidural flow without vascular or intrathecal uptake. At this point, 1cc of 1% lidocaine solution combined with 2cc or 10mg of dexamethasone and 6mg betamethasone was injected without incident. The patient tolerated the procedure well without signs or symptoms of complications prior to transfer to the recovery area continued monitoring without incident. The patient was then transferred to the recovery area where they were observed for an appropriate period of time after the injection. The patient reported a VAS score of 6 prior to the procedure and a post- procedure VAS of 0. POST OP INSTRUCTIONS The patient was provided a Pain Log to continue to record their response to the target-specific procedure prior to follow-up visit with their referring physician. Additionally, specific post-injection care instructions and a contact number to our office were provided if concerns arise regarding possible complications associated with the procedure are suspected.
== END 2023-10-17 15:05 | disposition home or self-care (01) ==
PROVIDERS: PCP Family Medicine; Referring Provider Physical Medicine & Rehabilitation; Visit Provider Physical Medicine & Rehabilitation
DX: M51.16 Intervertebral disc disorders with radiculopathy, lumbar region (principal); M48.061 Spinal stenosis, lumbar region without neurogenic claudication
CPT/HCPCS: 62323; 99152; J0702; J1100; J2250; J3490

== ENCOUNTER → 2023-11-16 15:35 | Outpatient (CLI) | payer MEDICARE, SELFPAY ==
[2023-11-16 19:15] LABS: Appearance Urine UA CLEAR; Bilirubin Urine UA NEGATIVE (NEGATIVE); Color Urine UA YELLOW; Glucose Urine UA NEGATIVE (Negative); Ketones Urine UA NEGATIVE (NEGATIVE); Leukocyte Esterase Urine UA TRACE (NEGATIVE); Nitrite Urine UA NEGATIVE (Negative); Occult Blood Urine UA NEGATIVE (Negative); Protein Urine UA NEGATIVE (Negative); Urobilinogen Urine UA 0.2 E.U./dL (0.2)
[2023-11-16 19:18] LABS: pH Urine UA 5.5 (4.5-8.0)
[2023-11-16 19:25] LABS: Bacteria Urine Occasional (0-1); Culture Indicated Urine Specimen Cultured; RBC Urine 0-1/HPF (0-5/HPF); Squamous Epithelial Cell Urine None Seen (0-5/HPF); Urine Volume 10mL (spun); WBC Urine 0-1/HPF (0-5/HPF)
== END ==
PROVIDERS: PCP Family Medicine; Visit Provider Physician Assistant
DX: R68.83 Chills (without fever) (principal); R53.83 Other fatigue
CPT/HCPCS: 81001; 87086

== ENCOUNTER → 2023-11-20 10:54 | Outpatient (CLI) | payer MEDICARE, SELFPAY ==
[2023-11-20 19:55] LABS: Add Manual Diff / Slide Review NO; Basophils Absolute Auto 100 /uL (0-100); Basophils Percent Auto 1.2 % (0-2); Eosinophils Absolute Auto 100 /uL (0-450); Eosinophils Percent Auto 1.2 % (2-4); Hematocrit 36.4 % (36-46); Lymphocytes Absolute Auto 1000 /uL (1100-4500); Lymphocytes Percent Auto 16.7 % (25-40); Mean Corpuscular Hemoglobin 29.6 PG (26-34); Mean Corpuscular Volume 89.5 fL (80-100); Monocytes Absolute Auto 600 /uL (0-900); Monocytes Percent Auto 8.9 % (3-14); Neutrophils Absolute Auto 4500 /uL (1500-7000); Platelet Count 184 X10^3/uL (150-400); Red Blood Cell Count 4.06 X10^6/uL (4.0-5.2); Red Cell Distribution Width 13.7 % (11.6-14.8); White Blood Cell Count 6.2 X10^3/uL (4.5-11.0)
[2023-11-20 19:58] LABS: Hemoglobin A1C% w Est Avg Glu 5.5 % (4.0-6.0)
[2023-11-20 20:04] LABS: Alanine Aminotransferase 10 IU/L (<35); Albumin 4.3 g/dL (3.5-5.0); Albumin Globulin Ratio 1.8 (1.0-2.8); Alkaline Phosphatase 71 U/L (38-126); Aspartate Aminotransferase 28 IU/L (14-36); BUN Creatinine Ratio 24.4 (6-22); Bilirubin Total 0.6 mg/dL (0.2-1.3); Blood Urea Nitrogen 21 mg/dL (7-17); Calcium 9.7 mg/dL (8.4-10.2); Carbon Dioxide 32 mmol/L (22-32); Chloride 101 mmol/L (98-107); Estimated Glomerular Filt Rate > 60 mL/min (>60); Globulin 2.4 g/dL (1.7-4.1); Glucose 87 mg/dL (80-110); HEMOLYSIS < 15 (0-50); Magnesium 2.3 mg/dL (1.6-2.3); Potassium 3.5 mmol/L (3.4-5.1); Sodium 138 mmol/L (137-145); Total Protein 6.7 g/dL (6.3-8.2)
[2023-11-20 20:32] LABS: TSH w/ Reflex to FT4 1.92 uIU/mL (0.47-4.68)
== END ==
PROVIDERS: PCP Family Medicine; Visit Provider Physician Assistant
DX: D64.9 Anemia, unspecified (principal); Z79.899 Other long term (current) drug therapy; I10 Essential (primary) hypertension; E03.9 Hypothyroidism, unspecified; R73.9 Hyperglycemia, unspecified
CPT/HCPCS: 80053; 83036; 83735; 84443; 85025

== ENCOUNTER → 2023-11-28 09:37 | Outpatient (CLI) | payer MEDICARE, SELFPAY ==
--- NOTE | 2023-11-28 09:35 | DI.RAD.S_ITS ---
PROCEDURE: FL BARIUM SWALLOW W SPEECH INDICATIONS: Dysphagia COMPARISON: None. TECHNIQUE: Examination was conducted in conjunction with speech pathology per standard protocol. In the lateral projection, filming was performed of the patient swallowing. AP projection filming may also be performed with patient swallowing. COMPARISON: FINDINGS: Function: The oral preparatory phase appears normal, with proper containment. The subsequent oral propulsive phase, pharyngeal phase, and esophageal phase of swallowing also appear normal with all proffered substances. No laryngotracheal penetration or aspiration. No pathologic vallecular pooling. Morphology: No cricopharyngeal bar is identified. No cervical esophageal webs. No Zenker's diverticulum. No strictures. There is a moderate size hiatal hernia with tortuous appearing mid to distal esophagus. IMPRESSION: 1. Normal modified barium swallow study. 2. Moderate size hiatal hernia with tortuous appearing mid to distal esophagus. Dictated by: Rishabh Flaherty M.D. on 11/28/2023 at 13:42 Approved by: Rishabh Flaherty M.D. on 11/28/2023 at 13:46
--- NOTE | 2023-11-28 14:19 | ST.SWALLOW ---
Visit Care Team Role Provider Type David Mtz MD Primary Care Provider Physician Specialty: Family Practice Address: [address] [place] [address], [id number] Email: [email or web address] Luigi Balbuena MD Attending Provider Physician Referring Provider Specialty: Ear, Nose, Throat Address: [address] [place] [address], [id number] Email: [email or web address] ST Modified Barium Swallow Study SPECIAL EVENTS MANAGER Modified Barium Swallow Study Start: 11/28/23 10:46 Freq: Status: Active Protocol: Document 11/28/23 10:46 LNK (Rec: 11/28/23 11:24 LNK [id number]) Modified Barium Swallow Study Total Time Visit Start Time 10:00 Visit Stop Time 10:40 Total Visit Minutes [address] Balbuena, ENT; ALMA Cullen Reason for Referral dysphagia Setting Setting Outpatient Care Patient Information Identification Type Name,Date of Patient History Pt was seen for a Modified Barium Swallow Study at the referral of Dr. Balbuena. Pt is currently being seen for ST services by IAN Myers at [facility]. Pt c/o difficulty with swallowing foods/liquids in that she frequently regurgitates esophageal contents into her mouth after meals, sometimes hours after a meal and/or when bending over. Pt has a history of esophageal diagnoses that include: bleeding ulcers, GERD , Saavedra's esophagus and hiatal hernia. 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 Pt reported a surgical repair in 2014 of hiatal hernia, repositioning the stomach below diaphragm and securing stomach with mesh materials. According to the pt, this repair failed to hold. She recently ( Aug 2023) had esophagram at [facility], pt reported . Results unknown at this time . Subjective Observations Pt was seated in the fluoroscopy chair with directions and procedures described for her. She indicated she understood and agreed to proceed. Patient Positioning Position View Lat-A/P Imaging Lateral View Textures Administered Trials Presented Thin Liquid via Spoon (IDDSI 0 ),Thin Liquid via Cup (IDDSI 0 ),Extremely Thick Liquid via Spoon (IDDSI 4),Regular (IDDSI 7) Barium Tablet Yes The IDDSI Framework Protocol: IDDSI.1 Oral Impairment Source: The Modified Barium Swallow Impairment Profile (MBSImP??) Lip Closure No labial escape Tongue Control During Bolus Hold Cohesive bolus between tongue to palatal seal Bolus Preparation/Mastication Timely & efficient chewing & mashing Bolus Transport/Lingual Motion Brisk tongue motion Oral Residue Complete oral clearance Initiation of Pharyngeal Swallow Bolus head in valleculae Additional Oral Impairment Observations OME and DKS were observed to be WNL. Some missing molars. Mastication observed with rotary chew pattern. Good bolus formation, control and AP transition. Pharyngeal Impairment Source: The Modified Barium Swallow Impairment Profile (MBSImP??) Soft Palate Elevation No bolus between soft palate & pharyngeal wall Laryngeal Elevation Part.sup.move.thyroid cart/ part.approx.arytenoids to epiglot.petiole Anterior Hyoid Excursion Partial anterior movement Epiglottic Movement Partial inversion Laryngeal Vestibular Closure Incomplete; narrow column air/ contrast in laryngeal vestibule Pharyngeal Stripping Wave Present - diminished Pharyngoesophageal Segment Opening Complete distention & complete duration; no obstruction of flow Tongue Base Retraction Narrow column of contrast/air betwn tongue base & post. pharyngeal wall Pharyngeal Residue Collection of residue within/ on pharyngeal structures Location Valleculae Additional Pharyngeal Impairment *Reduced tongue base Observations retraction strength *Reduced elevation and movement of hyolaryngeal structures *Epiglottal inversion variable from no inversion (small swallows) to fully inverted ( sequential swallows of liquids or with solids) *Seal of the laryngeal vestibule was adequate with no laryngeal penetration ( without chin tuck) to tracheal aspiration observed *Chin tuck swallow DID NOT prevent penetration of pooled valecullar contrast (PAS 5) *Valecullar pooling cleared with double swallow across all trials A/P View Textures Administered Trials Presented Thin Liquid via Cup (IDDSI 0) The IDDSI Framework Protocol: IDDSI.1 A/P View Observations Pharyngeal Contraction Complete Esophageal Clearance Upright Position Esophageal retention Vocal Fold Function Good Additional A-P Observations Large hiatal hernia noted with esophagus in a coiled position within/behind hernia. Contrast retention was observed in the lower esophagus and in hernia. This appears to be similar to the radiology observations reported in 2015. Clinical Impressions Dysphagia Type Esophageal Findings Base of tongue weakness with inconsistent epiglottic inversion. Double swallow needed to clear valeculla. Chin tuck not recommended as a strategy. GI referral recommended. Recommend Swallow therapy for safe swallow strategy education and base of tongue strengthening exercises Rehabilitation Potential Good Patient Appropriate for Therapy Yes Recommendations Diet Liquids Order Thin (IDDSI 0) Diet Order Regular (IDDSI 7) Medication Recommendation Whole in Carrier,Crushed in Carrier Comments DOUBLE SWALLOW needed for all swallows to clear pooled residual Additional Dietary Needs Single Sips Aspiration Precautions Recommended Precautions Upright at 90 Degrees,Frequent Rest Periods,Double Swallow Additional Precautions NO Chin tuck! - significant penetration into the laryngeal vestibule Treatment Plan Recommended Referrals GI Consult Therapy Strategy Recommendations Sitting Upright (90 deg)
== END ==
PROVIDERS: PCP Family Medicine; Referring Provider Otolaryngology; Visit Provider Otolaryngology
DX: R13.19 Other dysphagia (principal); K44.9 Diaphragmatic hernia without obstruction or gangrene
CPT/HCPCS: 74230; 92611

== ENCOUNTER 2024-01-23 12:19 | Outpatient (CLI) | payer MEDICARE, SELFPAY ==
[2024-01-23] VITALS (9 sets, daily range): BP systolic 118–161; BP diastolic 55–76; PULSE 78–88; RESP 16–21; TEMP 36.6; O2SAT 96–100
--- NOTE | 2024-01-23 13:00 | DI.RAD.S_ITS ---
PROCEDURE: PAIN L/S FACET INJ/BLK 1ST YARED INDICATIONS: Bilateral L4-L5 and S1 medial branch block LA COMPARISON: None. FINDINGS: Fluoroscopic spot filming was performed to verify placement of spinal needles at the right L4-5 and S1 level(s), as labeled on the films. Appropriate location(s) of the needle tip(s) was confirmed by injection of iodinated contrast. IMPRESSION: Fluoroscopic guidance. Dictated by: Deacon Cerda M.D. on 01/23/2024 at 15:22 Approved by: Deacon Cerda M.D. on 01/23/2024 at 15:22
[2024-01-23] MEDS: MIDAZOLAM 2 MG/2 ML VIAL IV (13:26)
[2024-01-23] MEDS: iopamidoL 15 ML VIAL 3 ML INJ (13:32)
[2024-01-23] MEDS: LIDOCAINE 1% 20 ML 5 ML INJ (13:32)
[2024-01-23] MEDS: BUPIVACAINE 0.5% (PF) 10 ML VIAL 5 ML INJ (13:32)
--- NOTE | 2024-01-23 13:46 | PM.PROC.IR.1 ---
Date/Time/Diagnoses Date of procedure: 01/23/24 Time of procedure: 13:46 Pre-procedure diagnosis: 1. FACET ARTHROPATHY Post-procedure diagnosis: same Procedure Notes Procedure: 1. BILATERAL- L4, L5 and S1 DIAGNOSTIC MB BLOCKS with LA Anesthetic Indications: Scot is referred by Dr. Mtz for treatment of Bilateral Axial LBP. Physician: David Bazzi Total Fluoroscopy time (seconds): 10 Total sedation minutes: 15 Complications: none Procedure in detail & Post-procedure care: DESCRIPTION OF PROCEDURE Fluoroscopically guided, contrast-controlled bilateral L4, L5 and S1 medial branch blocks with 0.5cc of 0.5% Marcaine. Following review of allergy and review of potential side effects and complications, including, but not necessarily limited to, infection, allergic reaction, local tissue breakdown, nerve injury, paralysis, stroke and possible , the patient indicated that the patient understood and agreed to proceed. An informed consent document was signed by the patient, witnessed by a nurse, and placed in the patient's chart. After review of previous anaesthesic history and IV conscious sedation the patient was deemed safe to proceed with today's procedure with IV conscious sedation as ASA class II designation. Safety time-out was performed to confirm patient ID, procedure to be performed and site of procedure. IV sedation was accomplished with a combination of 2mg of Versed was administered by the RN after DO order, titrated to patient comfort during the course of the procedure while the patient remained responsive to all verbal commands In the prone position, following sterile prep and drape of the lumbar region, the right L4, L5 and S1 anatomical location of the medial branch of the dorsal ramus was identified fluoroscopically. Subsequently an anesthetic skin wheal using 1% lidocaine solution was initiated at each of the anatomical spots. Subsequently then a 22-gauge 3.5-inch spinal needle was atraumatically introduced and advanced under fluoroscopic guidance at each of the corresponding sites at the right L4, L5 and S1 MB. After negative aspiration, 0.2cc of Isovue 200 was injected, confirming placement without vascular or intrathecal uptake. Subsequently then 0.5cc of 0.5% Marcaine solution was injected at each of the corresponding sites at the right L4, L5 and S1 medial branch locations. The identical procedure was replicated on the left. The patient tolerated the procedure well without signs or symptoms of complications prior to transfer to the recovery area continued monitoring without incident. Post-procedure, the patient was monitored initiating provocative activities to measure the amount of relief from block of the facetogenic pain. The patient reported a VAS of 7 prior to the procedure and a post-procedure VAS of 1. It has been a pleasure to assist in the diagnostic and therapeutic care of your patient. POST OP INSTRUCTIONS The patient was provided with a Pain Log to complete over the next several hours and subsequent days prior to the patient's follow up with the ordering physician. If the patient has sales order specialist relief to the solution applied, then they may be a candidate for medial branch rhizotomy. The patient is aware, was provided, once again, with a Pain Log and will follow up with the referring physician for review and clinical correlation
== END 2024-01-23 13:59 | disposition home or self-care (01) ==
LOC: RAD 12:20
PROVIDERS: PCP Family Medicine; Referring Provider Physical Medicine & Rehabilitation; Visit Provider Physical Medicine & Rehabilitation
DX: M47.816 Spondylosis without myelopathy or radiculopathy, lumbar region (principal); M47.817 Spondylosis without myelopathy or radiculopathy, lumbosacral region
CPT/HCPCS: 64493; 64494; 99152; J2250

== ENCOUNTER → 2024-01-29 14:21 | Outpatient (CLI) | payer MEDICARE, SELFPAY | PROVIDERS: PCP Family Medicine; Visit Provider Family Medicine | DX: E55.9 Vitamin D deficiency, unspecified (principal) | CPT/HCPCS: 82306 ==

== ENCOUNTER → 2024-03-07 13:05 | Outpatient (CLI) | payer MEDICARE, SELFPAY ==
[2024-03-07 19:48] LABS: Add Manual Diff / Slide Review NO; Basophils Absolute Auto 100 /uL (0-100); Basophils Percent Auto 1.2 % (0-2); Eosinophils Absolute Auto 100 /uL (0-450); Hematocrit 32.1 % (36-46); Hemoglobin 10.6 g/dL (12.0-16.0); Lymphocytes Absolute Auto 1000 /uL (1100-4500); Lymphocytes Percent Auto 18.5 % (25-40); Mean Corpuscular Hemoglobin 28.5 PG (26-34); Mean Corpuscular Volume 86.5 fL (80-100); Monocytes Absolute Auto 400 /uL (0-900); Monocytes Percent Auto 7.6 % (3-14); Neutrophils Absolute Auto 3800 /uL (1500-7000); Neutrophils Percent Auto 70.7 % (50-75); Platelet Count 178 X10^3/uL (150-400); Red Blood Cell Count 3.71 X10^6/uL (4.0-5.2); Red Cell Distribution Width 15.5 % (11.6-14.8); White Blood Cell Count 5.4 X10^3/uL (4.5-11.0)
== END ==
PROVIDERS: PCP Family Medicine; Visit Provider Family Medicine
DX: D64.9 Anemia, unspecified (principal)
CPT/HCPCS: 85025

== ENCOUNTER → 2024-05-07 11:51 | Outpatient (CLI) | payer MEDICARE, SELFPAY ==
[2024-05-07 19:05] LABS: Add Manual Diff / Slide Review NO; Basophils Absolute Auto 100 /uL (0-100); Basophils Percent Auto 1.1 % (0-2); Eosinophils Absolute Auto 100 /uL (0-450); Eosinophils Percent Auto 2.3 % (2-4); Hematocrit 35.3 % (36-46); Hemoglobin 11.6 g/dL (12.0-16.0); Lymphocytes Absolute Auto 1200 /uL (1100-4500); Lymphocytes Percent Auto 21.3 % (25-40); Mean Corpuscular Hemoglobin 28.6 PG (26-34); Mean Corpuscular Volume 86.7 fL (80-100); Monocytes Absolute Auto 400 /uL (0-900); Monocytes Percent Auto 6.6 % (3-14); Neutrophils Absolute Auto 3900 /uL (1500-7000); Neutrophils Percent Auto 68.7 % (50-75); Platelet Count 187 X10^3/uL (150-400); Red Blood Cell Count 4.06 X10^6/uL (4.0-5.2); Red Cell Distribution Width 16.5 % (11.6-14.8); White Blood Cell Count 5.7 X10^3/uL (4.5-11.0)
[2024-05-07 20:16] LABS: HEMOLYSIS < 15 (0-50); Iron 83 ug/dL (37-170)
[2024-05-07 20:30] LABS: Percent Iron Saturation 23 % (15-50); Total Iron Binding Capacity 361 ug/dL (265-497); Transferrin 283 mg/dL (206-381)
[2024-05-07 20:38] LABS: Vitamin D 25 Hydroxy (D3) 34.4 ng/mL (30.0-100.0)
== END ==
PROVIDERS: PCP Family Medicine; Visit Provider Family Medicine
DX: D64.9 Anemia, unspecified (principal); G25.81 Restless legs syndrome; E55.9 Vitamin D deficiency, unspecified
CPT/HCPCS: 82306; 83540; 83550; 85025

== ENCOUNTER → 2024-07-18 11:19 | Outpatient (CLI) | payer MEDICARE, SELFPAY ==
[2024-07-18 20:11] LABS: Add Manual Diff / Slide Review NO; Basophils Absolute Auto 100 /uL (0-100); Basophils Percent Auto 0.9 % (0-2); Eosinophils Absolute Auto 100 /uL (0-450); Eosinophils Percent Auto 1.9 % (2-4); Hematocrit 33.9 % (36-46); Hemoglobin 11.4 g/dL (12.0-16.0); Lymphocytes Absolute Auto 1100 /uL (1100-4500); Lymphocytes Percent Auto 18.1 % (25-40); Mean Corpuscular HGB Conc 33.5 % (30-36); Mean Corpuscular Hemoglobin 30.1 PG (26-34); Mean Corpuscular Volume 89.6 fL (80-100); Monocytes Absolute Auto 500 /uL (0-900); Monocytes Percent Auto 8.8 % (3-14); Neutrophils Absolute Auto 4300 /uL (1500-7000); Neutrophils Percent Auto 70.3 % (50-75); Platelet Count 174 X10^3/uL (150-400); Red Blood Cell Count 3.78 X10^6/uL (4.0-5.2); Red Cell Distribution Width 15.1 % (11.6-14.8); White Blood Cell Count 6.2 X10^3/uL (4.5-11.0)
== END ==
PROVIDERS: PCP Family Medicine; Visit Provider Family Medicine
DX: D64.9 Anemia, unspecified (principal)
CPT/HCPCS: 85025

== ENCOUNTER 2024-09-17 13:16 | Outpatient (CLI) | payer MEDICARE, SELFPAY ==
[2024-09-17] VITALS (9 sets, daily range): BP systolic 140–168; BP diastolic 67–83; PULSE 74–82; RESP 14–19; TEMP 36.8; O2SAT 95–100
--- NOTE | 2024-09-17 13:18 | DI.RAD.S_ITS ---
PROCEDURE: PAIN L/S FACET INJ/BLK 1ST YARED INDICATIONS: Bilateral L4, L5 and S1 MBB SA COMPARISON: [facility], , PAIN L/S FACET INJ/BLK 1ST YARED, 01/23/2024, 13:31. FINDINGS/IMPRESSION: Fluoroscopic spot filming was performed to verify placement of spinal needles at the bilateral L4, L5, and S1 levels, as labeled on the films. Appropriate locations of the needle tips were confirmed by injection of iodinated contrast. Approved by: Gagan Gerber M.D. on 09/18/2024 at 20:29
[2024-09-17] MEDS: MIDAZOLAM 2 MG/2 ML VIAL IV (15:05)
[2024-09-17] MEDS: iopamidoL 15 ML VIAL 3 ML INJ (15:06)
[2024-09-17] MEDS: LIDOCAINE 2% INJ SDV 5ML 1 ML INJ (15:07)
[2024-09-17] MEDS: LIDOCAINE 1% 20 ML 5 ML INJ (15:07)
--- NOTE | 2024-09-17 15:23 | P.PCN_ITS ---
Date/Time/Diagnoses Date of procedure: 09/17/24 Time of procedure: 15:23 Pre-procedure diagnosis: 1. FACET ARTHROPATHY Post-procedure diagnosis: same Procedure Notes Procedure: 1. BILATERAL- L4, L5 and S1 DIAGNOSTIC MB BLOCKS with SA Anesthetic Indications: Scot is referred by Dr. Mtz for treatment of Bilateral Axial LBP. Physician: David Bazzi Total Fluoroscopy time (seconds): 11 Total sedation minutes: 12 Complications: none Procedure in detail & Post-procedure care: DESCRIPTION OF PROCEDURE Fluoroscopically guided, contrast-controlled bilateral L4, L5 and S1 medial branch blocks with 0.5cc of 2% Lidocaine. Following review of allergy and review of potential side effects and complications, including, but not necessarily limited to, infection, allergic reaction, local tissue breakdown, nerve injury, paralysis, stroke and possible , the patient indicated that the patient understood and agreed to proceed. An informed consent document was signed by the patient, witnessed by a nurse, and placed in the patient's chart. After review of previous anaesthesic history and IV conscious sedation the patient was deemed safe to proceed with today's procedure with IV conscious sedation as ASA class II designation. Safety time-out was performed to confirm patient ID, procedure to be performed and site of procedure. IV sedation was accomplished with a combination of 2mg of Versed was administered by the RN after DO order, titrated to patient comfort during the course of the procedure while the patient remained responsive to all verbal commands In the prone position, following sterile prep and drape of the lumbar region, the right L4, L5 and S1 anatomical location of the medial branch of the dorsal ramus was identified fluoroscopically. Subsequently an anesthetic skin wheal u sing 1% lidocaine solution was initiated at each of the anatomical spots. Subsequently then a 22-gauge 3.5-inch spinal needle was atraumatically introduced and advanced under fluoroscopic guidance at each of the corresponding sites at the right L4, L5 and S1 MB. After negative aspiration, 0.2cc of Isovue 200 was injected, confirming placement without vascular or intrathecal uptake. Subsequently then 0.5cc of 2% Lidocaine solution was injected at each of the corresponding sites at the right L4, L5 and S1 medial branch locations. The identical procedure was replicated on the left. The patient tolerated the procedure well without signs or symptoms of complications prior to transfer to the recovery area continued monitoring without incident. Post-procedure, the patient was monitored initiating provocative activities to measure the amount of relief from block of the facetogenic pain. The patient reported a VAS of 7 prior to the procedure and a post-procedure VAS of 1. It has been a pleasure to assist in the diagnostic and therapeutic care of your patient. POST OP INSTRUCTIONS The patient was provided with a Pain Log to complete over the next several hours and subsequent days prior to the patient's follow up with the ordering physician. If the patient has superintendent marine oil terminal relief to the solution applied, then they may be a candidate for medial branch rhizotomy. The patient is aware, was provided, once again, with a Pain Log and will follow up with the referring physician for review and clinical correlation
== END 2024-09-17 16:00 | disposition home or self-care (01) ==
PROVIDERS: PCP Family Medicine; Referring Provider Physical Medicine & Rehabilitation; Visit Provider Physical Medicine & Rehabilitation
DX: M47.816 Spondylosis without myelopathy or radiculopathy, lumbar region (principal); M47.817 Spondylosis without myelopathy or radiculopathy, lumbosacral region
CPT/HCPCS: 64493; 64494; 99152; J2250

== ENCOUNTER → 2024-10-21 10:44 | Outpatient (CLI) | payer MEDICARE, SELFPAY ==
[2024-10-21 18:45] LABS: Add Manual Diff / Slide Review NO; Basophils Absolute Auto 0 /uL (0-100); Basophils Percent Auto 0.8 % (0-2); Eosinophils Absolute Auto 100 /uL (0-450); Hematocrit 38.3 % (36-46); Hemoglobin 12.8 g/dL (12.0-16.0); Lymphocytes Absolute Auto 1000 /uL (1100-4500); Lymphocytes Percent Auto 16.6 % (25-40); Mean Corpuscular HGB Conc 33.3 % (30-36); Mean Corpuscular Hemoglobin 29.9 PG (26-34); Mean Corpuscular Volume 89.7 fL (80-100); Monocytes Absolute Auto 500 /uL (0-900); Monocytes Percent Auto 7.9 % (3-14); Neutrophils Absolute Auto 4300 /uL (1500-7000); Neutrophils Percent Auto 72.7 % (50-75); Platelet Count 170 X10^3/uL (150-400); Red Blood Cell Count 4.27 X10^6/uL (4.0-5.2); Red Cell Distribution Width 15.4 % (11.6-14.8); White Blood Cell Count 5.8 X10^3/uL (4.5-11.0)
[2024-10-21 18:47] LABS: BUN Creatinine Ratio 22.6 (6-22); Blood Urea Nitrogen 21 mg/dL (7-17); Calcium 9.7 mg/dL (8.4-10.2); Carbon Dioxide 27 mmol/L (22-32); Chloride 104 mmol/L (98-107); Cholesterol 286 mg/dL (140-199); Estimated Glomerular Filt Rate > 60 mL/min (>60); Glucose 101 mg/dL (80-110); HDL Cholesterol 81 mg/dL (40-60); HEMOLYSIS 26 (0-50); LDL Cholesterol Calculated 183 mg/dL (<100); Potassium 4.1 mmol/L (3.4-5.1); Sodium 139 mmol/L (137-145); Triglycerides 108 mg/dL (35-150)
[2024-10-21 18:49] LABS: HEMOLYSIS < 15 (0-50); Iron 78 ug/dL (37-170)
[2024-10-21 19:03] LABS: Percent Iron Saturation 22 % (15-50); Total Iron Binding Capacity 348 ug/dL (265-497); Transferrin 296 mg/dL (206-381)
[2024-10-21 19:07] LABS: Vitamin D 25 Hydroxy (D3) 22.3 ng/mL (30.0-100.0)
[2024-10-21 19:24] LABS: TSH w/ Reflex to FT4 1.17 uIU/mL (0.47-4.68)
[2024-10-21 19:44] LABS: Vitamin B12 824 pg/mL (239-931)
== END ==
PROVIDERS: PCP Family Medicine; Visit Provider Family Medicine
DX: D64.9 Anemia, unspecified (principal); I10 Essential (primary) hypertension; E03.9 Hypothyroidism, unspecified; R29.818 Other symptoms and signs involving the nervous system; G20.A1 Parkinson's disease without dyskinesia, without mention of fluctuations; E55.9 Vitamin D deficiency, unspecified
CPT/HCPCS: 80048; 80061; 82306; 82607; 83540; 83550; 84443; 85025

== ENCOUNTER 2024-10-31 11:25 | Outpatient (CLI) | payer MEDICARE, SELFPAY ==
[2024-10-31] VITALS (12 sets, daily range): BP systolic 147–211; BP diastolic 74–102; PULSE 71–78; RESP 16–20; TEMP 36.5; O2SAT 95–100
[2024-10-31] MEDS: MIDAZOLAM 2 MG/2 ML VIAL IV (12:30)
[2024-10-31] MEDS: LIDOCAINE 1% 20 ML 5 ML INJ (12:33)
[2024-10-31] MEDS: BUPIVACAINE 0.5% (PF) 10 ML VIAL 5 ML INJ (12:33)
[2024-10-31] MEDS: MIDAZOLAM 2 MG/2 ML VIAL 1 MG IV (12:40)
--- NOTE | 2024-10-31 13:18 | P.PCN_ITS ---
Date/Time/Diagnoses Date of procedure: 10/31/24 Time of procedure: 13:18 Pre-procedure diagnosis: 1. RECALCITRANT FACET ARTHROPATHY Post-procedure diagnosis: same Procedure Notes Procedure: 1. BILATERAL L4 AND L5 MEDIAL BRANCH RADIOFREQUENCY NEUROTOMY AND S1 DORSAL RAMUS BRANCH RADIOFREQUENCY NEUROTOMY Indications: Scot ortega referred by Dr. Mtz for treatment of facet arthropathy. Physician: David Bazzi Total Fluoroscopy time (seconds): 20 Total sedation minutes: 40 Complications: none Procedure in detail & Post-procedure care: DESCRIPTION OF PROCEDURE Bilateral L4 and L5 medial branch radiofrequency neurotomy and bilateral S1 dorsal ramus radiofrequency neurotomy under fluoroscopy with conscious sedation. The patient is well known to this clinic having undergone previous facet injections with good but temporary relief. The patient has experienced appropriate, concordant relief with previous facet and median branch blocks but the patient's pain has been recalcitrant to further conservative measures. Therefore, based upon the patient's relief and persistent symptoms, the patient is considered an appropriate candidate for facet rhizotomy. All of the patient's questions regarding the risks versus benefits of the procedure, including, but not limited to, bleeding, infection, temporary as well as lasting nerve injury, paralysis, stroke, and , as well treatment alternatives were answered to satisfaction. After obtaining informed consent, denial of pertinent drug allergies, as well as being made aware of the potential risks of bleeding, infection, spinal cord trauma, paralysis, temporary and permanent nerve damage, seizure, stroke, and possible , the patient was brought to the fluoroscopy suite and positioned prone on the fluoroscopy table. The lumbar region was prepped in usual sterile fashion and covered with a fenestrated drape in the usual sterile fashion. Appropriate monitors applied including pulse oximeter, pulse, and blood pressure for regular monitoring throughout the procedure. After review of previous anaesthesic history and IV conscious sedation the patient was deemed safe to proceed with today's procedure with IV conscious sedation as ASA class II designation. Safety time-out was performed to confirm patient ID, procedure to be performed and site of procedure. IV sedation was accomplished with a combination of 3mg of Versed administered by the RN after DO order, titrated to patient comfort during the course of the procedure while the patient remained responsive to all verbal commands. After local infiltration using 1% lidocaine, under fluoroscopic guidance, a 10- cm RF insulated needle with a 10-mm active tip was positioned parallel to the junction of the right sacral ala and the superior articulating process where the S1 dorsal ramus resides. Needle placement was confirmed with motor stimulation of .5v on the right which produced local stimulation without radicular component. The stimulation was then increased to 2v with, once again, only local multifidus stimulation without radicular component. The needle was then removed and the identical procedure was performed along the length of the right L5 medial branch with motor stimulation at .7v on the right. The identical procedure was once again performed along the length of the right L4 medial branch with motor stimulation of .5v on the right. The medial branches were then anesthetised with 0.5% Marcaine. This was then followed by two discreet lesions performed at 80 degrees Celsius for 90 seconds each. The identical procedure was repeated on the left. The patient tolerated the procedure well without signs or symptoms of complications prior to transfer to the recovery area continued monitoring without incident. The patient was then transferred to the recovery area where they were observed for an appropriate period of time after the injection. The patient reported a VAS score of 7 prior to the procedure and a post-procedure VAS of 0. POST OP INSTRUCTIONS The patient was provided a Pain Log to continue to record the patient's response to the target-specific procedure prior to the patient's follow-up visit with the referring physician. Additionally, specific post-injection care instructions and a contact number to our office were provided if concerns arise regarding possible complications associated with the procedure are suspected.
== END 2024-10-31 13:27 | disposition home or self-care (01) ==
PROVIDERS: PCP Family Medicine; Referring Provider Physical Medicine & Rehabilitation; Visit Provider Physical Medicine & Rehabilitation
DX: M47.816 Spondylosis without myelopathy or radiculopathy, lumbar region (principal); M47.817 Spondylosis without myelopathy or radiculopathy, lumbosacral region
CPT/HCPCS: 64635; 64636; 99152; 99153; J2250

== ENCOUNTER → 2024-11-12 10:46 | Outpatient (CLI) | payer MEDICARE, SELFPAY ==
--- NOTE | 2024-11-12 10:48 | DI.RAD.S_ITS ---
PROCEDURE: XR DEXA AXIAL SKELETON INDICATIONS: menopause COMPARISON: [facility], , DEXA AXIAL SKELETON, 12/09/2014, 11:03. FINDINGS: Lumbar Spine: Bone mineral density 1.530 g/cm2, T score 4.4, decreased by 6%. Left Femoral Neck: Bone mineral density 0.896 g/cm2, T score 0.4. Left Hip: Bone mineral density 1.057 g/cm2, T score 0.9, decreased by 9.2%. Fracture Risk Calculation (when applicable): 10-year fracture risk of a major osteoporotic fracture 7.9 percent and of a hip fracture 1.0 percent. (T score greater or equal to -1.0 to: NORMAL) (T score from -1.1 to -2.4: OSTEOPENIA) (T score less than or equal to -2.5: OSTEOPOROSIS) IMPRESSION: Normal bone mineral density by WHO classification. Follow-up guidelines as follows: Osteoporosis: Consider a repeat DEXA and Vertebral Fracture Assessment (VFA) exam in 2 years or sooner if medically necessary, to reassess this patient's status. Osteopenia: Consider a repeat DEXA in 2-3 years to reassess this patient's status, or if there is a new clinical indication. Normal: Consider a repeat DEXA in 5 years or sooner, or if there is a new clinical indication. All treatment decisions require clinical judgment and consideration of individual patient factors, including patient preferences, comorbidities, previous drug use, risk factors not captured in the FRAX model (e.g., frailty, falls, vitamin D deficiency, increased bone turnover, interval significant decline in bone density ) and possible under- or over-estimation of fracture risk by FRAX. In addition, the NOF Guide recommends that FDA-approved medical therapies be considered in postmenopausal women and men age >= 50 years with a: * Hip or vertebral (clinical or morphometric) fracture * T-score of <=-2.5 at the spine or hip * Ten-year fracture probability by FRAX of >= 3% for hip fracture or >=20% for major osteoporotic fracture. Dictated by: Reynaldo Mckoy M.D. on 11/12/2024 at 15:36 Approved by: Reynaldo Mckoy M.D. on 11/12/2024 at 15:37
== END ==
PROVIDERS: PCP Family Medicine; Referring Provider Family Medicine; Visit Provider Family Medicine
DX: Z78.0 Asymptomatic menopausal state (principal); R29.6 Repeated falls; G14 Postpolio syndrome; G20.C Parkinsonism, unspecified
CPT/HCPCS: 77080

== ENCOUNTER → 2025-01-14 08:44 | Outpatient (CLI) | payer MEDICARE, SELFPAY ==
[2025-01-14 19:59] LABS: Cholesterol 151 mg/dL (140-199); HDL Cholesterol 93 mg/dL (40-60); LDL Cholesterol Calculated 42 mg/dL (<100); Triglycerides 78 mg/dL (35-150)
[2025-01-14 20:18] LABS: Vitamin D 25 Hydroxy (D3) 68.4 ng/mL (30.0-100.0)
== END ==
PROVIDERS: PCP Family Medicine; Visit Provider Family Medicine
DX: E78.5 Hyperlipidemia, unspecified (principal); E55.9 Vitamin D deficiency, unspecified
CPT/HCPCS: 80061; 82306

== ENCOUNTER → 2025-02-05 11:20 | Outpatient (CLI) | payer MEDICARE, SELFPAY ==
[2025-02-05 19:46] LABS: Alanine Aminotransferase 9 IU/L (<35); Albumin 3.8 g/dL (3.5-5.0); Albumin Globulin Ratio 1.4 (1.0-2.8); Alkaline Phosphatase 86 U/L (38-126); Blood Urea Nitrogen 21 mg/dL (7-17); Calcium 9.5 mg/dL (8.4-10.2); Carbon Dioxide 28 mmol/L (22-32); Chloride 103 mmol/L (98-107); Estimated Glomerular Filt Rate > 60 mL/min (>60); Globulin 2.7 g/dL (1.7-4.1); Glucose 120 mg/dL (70-99); HEMOLYSIS 19 (0-50); Potassium 3.8 mmol/L (3.4-5.1); Sodium 138 mmol/L (137-145); Total Protein 6.5 g/dL (6.3-8.2)
[2025-02-05 19:48] LABS: Add Manual Diff / Slide Review NO; Hematocrit 37.3 % (36-46); Hemoglobin 12.5 g/dL (12.0-16.0); Lymphocytes Absolute Auto 1000 /uL (1100-4500); Mean Corpuscular HGB Conc 33.6 % (30-36); Mean Corpuscular Hemoglobin 30.8 PG (26-34); Mean Corpuscular Volume 91.9 fL (80-100); Platelet Count 163 X10^3/uL (150-400)
[2025-02-05 19:58] LABS: Vitamin D 25 Hydroxy (D3) 62.3 ng/mL (30.0-100.0)
[2025-02-05 20:19] LABS: TSH w/ Reflex to FT4 0.49 uIU/mL (0.47-4.68)
[2025-02-05 20:39] LABS: Vitamin B12 839 pg/mL (239-931)
== END ==
PROVIDERS: PCP Family Medicine; Visit Provider Physician Assistant Medical
DX: R25.1 Tremor, unspecified (principal); L98.9 Disorder of the skin and subcutaneous tissue, unspecified
CPT/HCPCS: 80053; 82306; 82607; 84443; 85025

== ENCOUNTER → 2025-03-06 17:10 | Outpatient (CLI) | payer MEDICARE, SELFPAY | LOC: LAB 17:11 | PROVIDERS: PCP Family Medicine; Visit Provider Nurse Practitioner Adult Health | DX: N76.0 Acute vaginitis (principal) | CPT/HCPCS: 87798; 87801 ==

== ENCOUNTER → 2025-05-19 12:50 | Outpatient (CLI) | payer MEDICARE, SELFPAY ==
[2025-05-19 20:01] LABS: Vitamin B12 > 1000 pg/mL (239-931)
[2025-05-20 15:53] LABS: Hep C Virus Ab w/Reflex Quant NEGATIVE s/c (NEGATIVE)
== END ==
PROVIDERS: PCP Family Medicine; Visit Provider Family Medicine
DX: E53.8 Deficiency of other specified B group vitamins (principal); Z11.59 Encounter for screening for other viral diseases
CPT/HCPCS: 82607; 86803

== ENCOUNTER → 2025-06-16 09:48 | Outpatient (CLI) | payer MEDICARE, SELFPAY ==
[2025-06-16 19:03] LABS: Add Manual Diff / Slide Review NO; Hematocrit 39.4 % (36-46); Hemoglobin 13.3 g/dL (12.0-16.0); Lymphocytes Absolute Auto 1200 /uL (1100-4500); Mean Corpuscular HGB Conc 33.8 % (30-36); Mean Corpuscular Hemoglobin 31.2 PG (26-34); Mean Corpuscular Volume 92.4 fL (80-100); Platelet Count 173 X10^3/uL (150-400)
[2025-06-16 19:10] LABS: HEMOLYSIS 16 (0-50); Iron 109 ug/dL (37-170)
[2025-06-16 19:13] LABS: Hemoglobin A1C% w Est Avg Glu 5.4 % (4.0-6.0)
[2025-06-16 19:25] LABS: Blood Urea Nitrogen 18 mg/dL (7-17); Calcium 9.6 mg/dL (8.4-10.2); Carbon Dioxide 27 mmol/L (22-32); Chloride 104 mmol/L (98-107); Cholesterol 292 mg/dL (140-199); Estimated Glomerular Filt Rate > 60 mL/min (>60); Glucose 107 mg/dL (70-99); HDL Cholesterol 107 mg/dL (40-60); HEMOLYSIS 16 (0-50); Potassium 4.0 mmol/L (3.4-5.1); Sodium 139 mmol/L (137-145); Triglycerides 162 mg/dL (35-150)
[2025-06-16 19:28] LABS: Percent Iron Saturation 35 % (15-50); Total Iron Binding Capacity 315 ug/dL (265-497); Transferrin 276 mg/dL (206-381)
[2025-06-16 19:37] LABS: Vitamin D 25 Hydroxy (D3) 27.9 ng/mL (30.0-100.0)
[2025-06-16 19:44] LABS: TSH w/ Reflex to FT4 5.19 uIU/mL (0.47-4.68)
[2025-06-16 20:07] LABS: Vitamin B12 966 pg/mL (239-931)
[2025-06-16 20:46] LABS: Free T4, Direct Thyroxine 1.70 ng/dL (0.78-2.19)
== END ==
PROVIDERS: PCP Family Medicine; Visit Provider Family Medicine
DX: D64.9 Anemia, unspecified (principal); R79.89 Other specified abnormal findings of blood chemistry; R13.10 Dysphagia, unspecified; E78.2 Mixed hyperlipidemia; I10 Essential (primary) hypertension; G25.81 Restless legs syndrome; E03.9 Hypothyroidism, unspecified; E55.9 Vitamin D deficiency, unspecified
CPT/HCPCS: 80048; 80061; 82306; 82607; 83036; 83540; 83550; 84439; 84443; 85025